=== PATIENT | male | born 1945 | race Caucasian/White ===

== ENCOUNTER 2018-06-06 09:41 | Emergency (ER) | payer MEDICARE, OTHER ==
--- NOTE | 2018-06-06 11:59 | EDM.PDOC ---
ED HPI GENERAL MEDICAL PROBLEM - General Stated Complaint: HEAD LACERATION Time Seen by Provider: 06/06/18 09:45 - History of Present Illness INITIAL COMMENTS - FREE TEXT/NARRATIVE: This demented 73-year-old is leaning over after sitting a hit his head as he fell on the corner of the bedside stand. He is obese has dementia asthma COPD depression diabetes type 2 hypertension radiculitis brachial neuritis cerebrovascular disease bilateral edema BPH hyperopia astigmatism presbyopia cataract dyslipidemia seasonal allergies prostatism depression and he is a very poor communicator because of his dense dementia. all this information was gleaned from his chart oft [facility] and also the staff. The woman [place]an[place] support worker with him from [facility] is outstanding, Attentive, and her gentle coaxing provides a nice interface for him to be secure and respond to our requests - Related Data Allergies Allergy/AdvReac Type Severity Reaction Status Date / Time No Known Allergies Allergy Verified 06/08/14 10:57 Home Meds: Home Meds Acetaminophen [Acetaminophen Extra Strength] 1,000 mg PO TID PRN 01/25/14 [ History] Albuterol Sulfate 2.5 mg IH BID 01/25/14 [History] Aspirin [Aspirin EC] 325 mg PO DAILY 01/25/14 [History] Bacitracin/Neomy/Polymy/Pramox [Neosporin Plus Oint] 1 applic TP DAILY PRN 01/25 [History] Budesonide [Pulmicort] 0.5 mg IH BID 01/25/14 [History] Cetirizine HCl [Zyrtec] 10 mg PO DAILY PRN 01/25/14 [History] Dutasteride [Avodart] 0.5 mg PO DAILY 01/25/14 [History] Fish Oil/Superior-3 Fatty Acids [Fish Oil 1,000 MG] 1 each PO DAILY 01/25/14 [ History] Gemfibrozil [Lopid] 600 mg PO DAILY 01/25/14 [History] Lisinopril [Prinivil] 30 mg PO DAILY 01/25/14 [History] Montelukast [Singulair] 10 mg PO BEDTIME 01/25/14 [History] Multivitamin/Iron/Folic Acid [Multi-Day Plus Iron Tablet] 1 each PO DAILY [History] Simvastatin [Zocor] 80 mg PO BEDTIME 01/25/14 [History] Tamsulosin [Flomax] 0.4 mg PO DAILY 01/25/14 [History] buPROPion HCl [Wellbutrin SR] 150 mg PO DAILY 01/25/14 [History] busPIRone [Buspar] 10 mg PO TID 01/25/14 [History] hydroCHLOROthiazide [Hydrochlorothiazide] 25 mg PO DAILY 01/25/14 [History] metFORMIN HCl [Metformin HCl ER] 1,000 mg PO DAILY 01/25/14 [History] Nystatin 1 each TOP BID 06/07/14 [History] PARoxetine [Paxil] 30 mg PO DAILY 06/07/14 [History] guaiFENesin/Dextromethorphan [G-Fenesin DM 20-400 MG Caplet] 1 each PO Q4HR PRN 06/07/14 [History] Albuterol [Proventil Neb Soln] 1 applicful IH BID 06/28/15 [History] Budesonide [Pulmicort] 1 applicful IH BID 06/28/15 [History] Past Medical History Other Neuro History: MENTAL HANDICAP Other Dermatologic History: ABDOMINAL FOLD, CHRONIC ED ROS GENERAL - Review of Systems Review Of Systems: Unable To Obtain ED EXAM, HEAD INJURY - Physical Exam Exam: See Below Text/Narrative:: Has a blank look on his face does respond nicely to the vertebral requests from the [facility] staff person. He is overweight tall and has a bulbous abdomen with a very notable superior 10 cm long anterior sagittal frontal scalp laceration General Appearance: Alert, WD/WN, No Apparent Distress Head: Scalp Lacerations Nexus Criteria: Posterior, Midline Cervical Tenderness Ears: Normal External Exam, Normal Canal, Hearing Grossly Normal, Normal TMs Nose: Normal Inspection, Normal Mucousa Throat/Mouth: Normal Inspection, Other Neck: Limited Range of Motion, Paraspinous Muscle Tender, Spinous Processes Tender Respiratory: No Respiratory Distress, Lungs Clear, Normal Breath Sounds, No Accessory Muscle Use, Chest Non-Tender Cardiovascular: Normal Peripheral Pulses, Regular Rate, Rhythm, No Edema, No Gallop GI/Abdominal Exam: Normal Bowel Sounds, Soft, Non-Tender, No Organomegaly, No Distention, No Abnormal Bruit (Male) Exam: Normal Inspection Back Exam: Normal Inspection, Full Range of Motion Extremities: Normal Inspection, Normal Range of Motion, Non-Tender, No Pedal Edema, Normal Capillary Refill Neurologic: fleet coordinator II-XII nml As Tested, Abnormal Gait, Motor Weakness, Depressed Affect, Other DTR: 1+: Bicep (R), Bicep (L) Skin: Normal Color, Warm/Dry, Cyanosis, Diaphoresis, Ecchymosis Course - Orders/Labs/Meds Orders: Active Orders 24 hr Category Date Time Status Cervical Spine wo Cont [CT] Stat Exams 06/06/18 10:50 Taken Head wo Cont [CT] Stat Exams 06/06/18 10:49 Ordered - Re-Assessments/Exams Free Text/Narrative Re-Assessment/Exam: 06/06/18 12:05 By respiratory therapy how to use the inspiratory/incentive spirometer. Departure - Departure Time of Disposition: 12:55 (Concussion, 9 centimeters scalp laceration treated with juma 6 juma dementia, obesity, C3-4-5 6 degenerative disc disease with loss of disc space, mild (my reading) AP spinal canal narrowingmild stenosis without impingement on the spinal cord,) Disposition: DC/Tfer to [place] [id number] Clinical Impression: Concussion Qualifiers: Encounter type: initial encounter Loss of consciousness presence/duration: without LOC Qualified Code(s): S06.0X0A - Concussion without loss of consciousness, initial encounter Laceration of scalp without complication Qualifiers: Encounter type: initial encounter Qualified Code(s): S01.01XA - Laceration without foreign body of scalp, initial encounter Dementia Qualifiers: Dementia type: Alzheimer's disease Alzheimer's disease onset: early-onset Dementia behavioral disturbance: without behavioral disturbance Qualified Code(s ): G30.0 - Alzheimer's disease with early onset; F02.80 - Dementia in other diseases classified elsewhere without behavioral disturbance - Discharge Information *PRESCRIPTION DRUG MONITORING PROGRAM REVIEWED*: Not Applicable *COPY OF PRESCRIPTION DRUG MONITORING REPORT IN PATIENT ABDI: Not Applicable Instructions: Head Injury, Adult, Head Injury, Adult, [id number], Concussion , Adult, Wound Care, Adult, Stitches, Juma, or Adhesive Wound Closure Referrals: See Cain MD [Primary Care Provider] - - My Orders Last 24 Hours: My Active Orders 06/06/18 10:49 Head wo Cont [CT] Stat 06/06/18 10:50 Cervical Spine wo Cont [CT] Stat - Assessment/Plan Last 24 Hours: My Active Orders 06/06/18 10:49 Head wo Cont [CT] Stat 06/06/18 10:50 Cervical Spine wo Cont [CT] Stat
[2018-06-06 14:51] VITALS: BP 132/74
== END 2018-06-06 13:15 ==
LOC: FB.ED 09:41
DX: S06.0X0A Concussion without loss of consciousness, initial encounter (principal); S01.01XA Laceration without foreign body of scalp, initial encounter; G30.0 Alzheimer's disease with early onset; F02.80 Dementia in other diseases classified elsewhere, unspecified severity, without behavioral disturbance, psychotic disturbance, mood disturbance, and anxiety; I10 Essential (primary) hypertension; E11.9 Type 2 diabetes mellitus without complications; W01.198A Fall on same level from slipping, tripping and stumbling with subsequent striking against other object, initial encounter
CPT/HCPCS: 12004; 70450; 72125; 99283

== ENCOUNTER 2024-10-17 17:55 | Emergency (ER) | payer MEDICARE, OTHER ==
[2024-10-17 19:10] LABS: BASOPHILS PERCENT AUTO 0.2 % (0.3-3.8); EOSINOPHILS ABSOLUTE AUTO 0.1 x10-3/uL (0.0-0.6); EOSINOPHILS PERCENT AUTO 2.5 % (0.1-6.8); HEMOGLOBIN 15.5 g/dL (12.9-17.7); LYMPHOCYTES ABSOLUTE AUTO 1.2 x10-3/uL (0.5-4.5); LYMPHOCYTES PERCENT AUTO 21.1 % (15.8-45.3); MEAN CORPUSCULAR HEMOGLOBIN 32.1 pg (27.0-33.3); MEAN CORPUSCULAR HGB CONC 34.4 g/dL (28.7-35.3); MEAN CORPUSCULAR VOLUME 93.4 fL (80.8-98.7); MEAN PLATELET VOLUME 6.9 fL (6.7-11.0); MONOCYTES ABSOLUTE AUTO 0.4 x10-3/uL (0.0-1.2); MONOCYTES PERCENT AUTO 7.8 % (5.5-15.2); NEUTROPHILS ABSOLUTE AUTO 3.9 x10-3/uL (1.7-6.9); NEUTROPHILS PERCENT AUTO 68.4 % (40.3-71.8); PLATELET COUNT,PLT 164 x10(3)uL (117-477); RED BLOOD CELL COUNT 4.82 x10(6)uL (3.90-5.90); RED CELL DISTRIBUTION WIDTH 14.8 % (12.4-15.0); WHITE BLOOD CELL COUNT,WBC 5.7 x10-3/uL (3.2-10.1)
[2024-10-17 19:14] LABS: BLOOD UREA NITROGEN,BUN 15 mg/dL (7-18); BUN/CREATININE RATIO 16.7 (9-20); CALCIUM 9.2 mg/dL (8.6-10.2); CARBON DIOXIDE,CO2 35 mmol/L (21-32); CHLORIDE,CL 103 mmol/L (100-110); CREATININE 0.9 mg/dL (0.70-1.30); ESTIMATED GFR 88 mL/min (>60); GLUCOSE RANDOM 107 mg/dL (80-116); POTASSIUM,K 4.1 mmol/L (3.5-5.3); SODIUM,NA 143 mmol/L (135-145)
[2024-10-17 19:20] LABS: A/G RATIO 1.1; ALANINE AMINOTRANSFERASE,ALT 23 U/L (12-36); ALBUMIN 3.9 g/dL (3.2-4.6); ALKALINE PHOSPHATASE 78 IU/L (56-112); ASPARTATE AMNIOTRANSFERASE,AST 13 IU/L (5-25); BILIRUBIN TOTAL 0.6 mg/dL (0.1-1.3); MAGNESIUM 2.1 mg/dL (1.8-2.5); PROTEIN TOTAL,TP 7.4 g/dL (6.0-8.0)
[2024-10-17] MEDS: Diphtheria,Pertussis(Acell),Tetanus Vaccine 0.5 ML Syringe IM ONE (21:09)
[2024-10-17 21:28] VITALS: BP 177/80; PULSE 64
== END 2024-10-17 21:10 ==
LOC: FB.ED 17:55
DX: S51.812A Laceration without foreign body of left forearm, initial encounter (principal); S00.83XA Contusion of other part of head, initial encounter; I10 Essential (primary) hypertension; E78.5 Hyperlipidemia, unspecified; J45.909 Unspecified asthma, uncomplicated; E11.9 Type 2 diabetes mellitus without complications; Z79.51 Long term (current) use of inhaled steroids; Z79.899 Other long term (current) drug therapy; Z79.82 Long term (current) use of aspirin; Z79.84 Long term (current) use of oral hypoglycemic drugs; Z23 Encounter for immunization; W01.198A Fall on same level from slipping, tripping and stumbling with subsequent striking against other object, initial encounter; Y93.89 Activity, other specified
CPT/HCPCS: 36415; 70450; 80053; 83735; 84484; 85025; 90471; 90715; 93005; 99284-25

== ENCOUNTER 2025-03-21 11:46 | Emergency (ER) | payer MEDICARE, MEDICAID ==
[2025-03-21 13:16] LABS: BASOPHILS ABSOLUTE AUTO 0.0 x10-3/uL (0.0-0.3); BASOPHILS PERCENT AUTO 0.4 % (0.3-3.8); EOSINOPHILS ABSOLUTE AUTO 0.2 x10-3/uL (0.0-0.6); EOSINOPHILS PERCENT AUTO 3.6 % (0.1-6.8); LYMPHOCYTES ABSOLUTE AUTO 1.0 x10-3/uL (0.5-4.5); LYMPHOCYTES PERCENT AUTO 17.1 % (15.8-45.3); MEAN PLATELET VOLUME 7.6 fL (6.7-11.0); MONOCYTES ABSOLUTE AUTO 0.4 x10-3/uL (0.0-1.2); MONOCYTES PERCENT AUTO 7.1 % (5.5-15.2); NEUTROPHILS ABSOLUTE AUTO 4.0 x10-3/uL (1.7-6.9); NEUTROPHILS PERCENT AUTO 71.8 % (40.3-71.8); PLATELET COUNT,PLT 138 x10(3)uL (117-477); RED BLOOD CELL COUNT 4.64 x10(6)uL (3.90-5.90); RED CELL DISTRIBUTION WIDTH 14.1 % (12.4-15.0); WHITE BLOOD CELL COUNT,WBC 5.6 x10-3/uL (3.2-10.1)
[2025-03-21 13:22] LABS: BLOOD UREA NITROGEN,BUN 14 mg/dL (7-18); CARBON DIOXIDE,CO2 33 mmol/L (21-32); CHLORIDE,CL 105 mmol/L (100-110); CREATININE 0.8 mg/dL (0.70-1.30); EST CRCL DRUG DOSING (CG) 86.00 mL/min; ESTIMATED GFR 91 mL/min (>60); GLUCOSE RANDOM 94 mg/dL (80-116); POTASSIUM,K 4.0 mmol/L (3.5-5.3); SODIUM,NA 142 mmol/L (135-145)
[2025-03-21 13:28] LABS: A/G RATIO 1.3; ALANINE AMINOTRANSFERASE,ALT 27 U/L (12-36); ASPARTATE AMNIOTRANSFERASE,AST 22 IU/L (5-25); BILIRUBIN TOTAL 0.6 mg/dL (0.1-1.3); PROTEIN TOTAL,TP 6.9 g/dL (6.0-8.0)
[2025-03-21] MEDS: LORazepam 2 MG/ML SDV IM ONE (13:36)
[2025-03-21 13:37] LABS: TSH ULTRASENSITIVE 1.97 IU/mL (0.36-3.74)
[2025-03-21 16:55] VITALS: BP 128/72; PULSE 60
== END 2025-03-21 17:38 ==
LOC: FB.ED 11:46
DX: Q03.9 Congenital hydrocephalus, unspecified (principal); F09 Unspecified mental disorder due to known physiological condition
CPT/HCPCS: 36415; 70551; 80053; 83036; 84443; 85025; 85379; 86140; 96372; 99285; J2060

== ENCOUNTER 2025-05-12 19:37 | Emergency (ER) | payer MEDICARE, MEDICAID ==
[2025-05-12 19:59] VITALS: BP 227/82; PULSE 68
[2025-05-12] MEDS: Sodium Chloride 0.9% 10 ML Syringe FLUSH PRN (20:00)
== END 2025-05-12 21:31 | disposition home or self-care (01) ==
LOC: FB.ED 19:37
DX: S01.112A Laceration without foreign body of left eyelid and periocular area, initial encounter (principal); I10 Essential (primary) hypertension; E78.00 Pure hypercholesterolemia, unspecified; E11.9 Type 2 diabetes mellitus without complications; Z79.82 Long term (current) use of aspirin; Z79.899 Other long term (current) drug therapy; Z79.84 Long term (current) use of oral hypoglycemic drugs; W22.8XXA Striking against or struck by other objects, initial encounter; Y93.89 Activity, other specified
CPT/HCPCS: 12013; 70450; 96374; 99283; J1920